=== PATIENT | male | born 1965 | race Caucasian/White ===

== ENCOUNTER 2017-04-02 17:47 | Emergency (ER) | payer BC ==
[2017-04-02 18:18] VITALS: BP 152/91
--- NOTE | 2017-04-02 19:57 | UC ---
Shanthi Basilio Edward, scribed for Deuce Castillo MD on 04/02/17 at 1847 . Skin Complaint HPI - HPI Summary HPI Summary: 51 y/o male presents to [facility] c/o rash around a tick bite on the back of the neck. Patient was bit on 03/26/17 on [place] back of [place] Since then, the patient developed swelling and a red sommer around the tick bite. Last night the patient's neck became increasingly stiff with soreness that radiated to the bottom of the head. Neck pain and stiffness is still present but rated at a 1/10 at triage. Denies nausea and MCALLISTER. Patient was prescribed doxycycline. No PMHx MRSA. - History of Current Complaint Chief Complaint: UCSkin Stated Complaint: TICK BITE WITH RASH Hx Obtained From: Patient Onset/Duration: Gradual Onset, Lasting Weeks - Bit on 03/26/17 Onset Severity: Mild Current Severity: Mild Pain Intensity: 1 Pain Scale Used: 0-10 Numeric Location: Discrete - Back of neck Character: Swelling, Pain, Redness Associated Signs & Symptoms: Negative: Nausea - Allergy/Home Medications Allergies/Adverse Reactions: Allergies Allergy/AdvReac Type Severity Reaction Status Date / Time No Known Allergies Allergy Verified 04/02/17 18:18 Home Medications: Home Medications Doxycycline TAB(NF) [Doxycycline (NF)] 100 mg PO BID 04/02/17 [History Confirmed 04/02/17] Review of Systems Constitutional: Negative Skin: Rash - Erythema and swelling around tick bite on back of neck Eyes: Negative ENT: Negative Respiratory: Negative Cardiovascular: Negative Gastrointestinal: Negative - No nausea Genitourinary: Negative Motor: Negative Neurovascular: Negative Musculoskeletal: Other: - Neck pain and stiffness (got worse last night) Neurological: Negative - No MCALLISTER Psychological: Negative All Other Systems Reviewed And Are Negative: Yes PMH/Surg Hx/FS Hx/Imm Hx - Additional Past Medical History Additional PMH: Negative MRSA Previously Healthy: Yes - Surgical History Surgical History: None - Family History Known Family History: Positive: Cardiac Disease - father, uncle, Other - Uncle - MRSA - Social History Lives: With Family Alcohol Use: Weekly Substance Use Type: None Smoking Status (MU): Never Smoked Tobacco Physical Exam Triage Information Reviewed: Yes Appearance: Well-Appearing, No Pain Distress Vital Signs: Initial Vital Signs Temp 98.5 F 04/02/17 18:13 Pulse 80 04/02/17 18:13 Resp 20 04/02/17 18:13 BP 152/91 04/02/17 18:13 Pulse Ox 100 04/02/17 18:13 Vital Signs Reviewed: Yes Eye Exam: Normal ENT: Positive: Normal ENT inspection Neck: Positive: Supple, Nontender, Other: - @ L posterior neck - bulls-eye rash with a scab in the center. No FB seen. No streaking. Respiratory: Positive: Lungs clear, Normal breath sounds Cardiovascular: Positive: RRR Abdomen Description: Positive: Nontender, Soft Bowel Sounds: Positive: Present Musculoskeletal: Positive: Strength Intact, ROM Intact Neurological Exam: Normal Psychological Exam: Normal Course/Dx - Course Course Of Treatment: MEDICATIONS REVIEWED. PATIENT HAS BULLSEYE RASH SURROUNDING HIS TICK BITE SITE. THE CENTER HAS SOME VESICLES. INITIALLY, THIS WAS GETTING WORSE. PATIENT HAS HAS 3 DOSES OF DOXY AND NOW THE SPREAD OF THE RASH APPEARS TO HAVE STOPPED. WILL ADD CLINDA FOR THE POSSIBILITY OF A MRSA CELLULITIS. - Diagnoses Provider Diagnoses: BULLSEYE RASH WITH SURROUNDING ERYTHEMA Discharge - Discharge Plan Condition: Stable Disposition: HOME Prescriptions: Clindamycin Cap(NF) [Cleocin 300 mg Cap(NF)] 300 mg PO Q6H #40 cap Patient Education Materials: Lyme Disease (ED), Cellulitis (ED), Tick Bite (ED) Referrals: No Primary Care Phys,NOPCP [Primary Care Provider] - Additional Instructions: FOLLOW UP WITH YOUR DOCTOR. GET SEEN AGAIN OR GO TO THE EMERGENCY DEPARTMENT FOR ANY WORSENING OF YOUR CONDITION OR QUESTIONS OR CONCERNS. The documentation as recorded by the Shanthi serrano Edward accurately reflects the service I personally performed and the decisions made by me, Deuce Castillo MD.
== END 2017-04-02 19:15 | disposition home or self-care (01) ==
LOC: UCEAST 17:47
DX: A69.20 Lyme disease, unspecified (principal)
CPT/HCPCS: 99212; G0463